=== PATIENT | male | born 1985 | race Caucasian/White ===

== ENCOUNTER 2021-06-02 18:03 | Emergency (ER) | payer SELFPAY ==
[~2021-06-02] VITALS: Ht 170.2 cm; Wt 104.3 kg
--- NOTE | 2021-06-02 18:10 | NUR ---
Patient to ER bed 7 to gown for evaluation. Side rails up. Report given to BARON Georges.
--- NOTE | 2021-06-02 18:15 | NUR ---
Pt bib ACLS from home with c/o SOB. Reports he tested positive for covid and was seen at [facility] for regeneron. He was sent home with O2 and instructed to call 911 if his saturation dropped below 90%. Pt reports being off of oxygen and his sats dropped to 89%. With O2 via NC at 2L, saturation 96%. Tachycardia noted upon assessment. Other v/s stable.
[2021-06-02 18:20] VITALS: BP_SYST 161
--- NOTE | 2021-06-02 18:50 | NUR ---
Pt. bib ACLS from home with concern regarding O2 sat.; was 89% when he called 911 on room air, on arrival of EMS pt. sat. was 96%, currently on 2L/min. via NC with sat of 94%. Pt. did have + Covid test on 05/25 and has been getting tx. with [facility]. Pt. has concerns he is not getting the right tx. S.L. in place from [facility].
--- NOTE | 2021-06-02 18:50 | NUR ---
crackels noted on lung auscultation.
--- NOTE | 2021-06-02 18:58 | NUR ---
ER at bedside examining patient.
--- NOTE | 2021-06-02 19:08 | NUR ---
Report to Issac
--- NOTE | 2021-06-02 19:09 | NUR ---
Received endorsement [facility] day shift, AAOX4, breathing spontaneously WITH O2 at 2L/min via NC, [id number]%, mild labored breathing, tachypnea, tachycardia noted, been tested Covid positive positive in [place].
--- NOTE | 2021-06-02 19:09 | NUR ---
Note ranijustus in EDM - 06/02/21 at 1919 by ROMÁN Received from day shift, AAOX3, breathing spontaneously at room air, notin distress noted, with ongoing IV fluid 0.9% NS 1L at left forearm , G20 IV cannula noted, patent. Vital signs stable
--- NOTE | 2021-06-02 19:15 | NUR ---
RT at bedside for ABG
[2021-06-02] MEDS ORDERED: BENZ100C92 PO (20:31)
[2021-06-02] MEDS ORDERED: DOXY-160 PO (20:31)
[2021-06-02] MEDS ORDERED: PRED20TA PO (20:31)
[2021-06-02] MEDS ORDERED: COLC0.6T67 PO ×2 (20:31)
[2021-06-02] MEDS ORDERED: ALBU8.5H8 INH (20:31)
[2021-06-02] MEDS ORDERED: ZINC50TA69 PO (20:31)
--- NOTE | 2021-06-02 20:31 | NUR ---
Medication reconciliation completed with information provided by the patient. Any prior medication reconciliation on file was reviewed and corrected.
[2021-06-02] MEDS ORDERED: LevALBUTEROL HCL 1.25 MG/0.5 ML *CONC.* VIAL.NEB (XOPENEX CONC.) INH ONE (20:45)
--- NOTE | 2021-06-02 21:31 | NUR ---
Teo junior arranged for transfer to [place] as per insurance request.
--- NOTE | 2021-06-02 23:21 | NUR ---
Chest Xray done at bedside
--- NOTE | 2021-06-02 23:30 | NUR ---
Patient to be transferred to [facility]. Is being transferred due to higher level of care. Receiving facility has accepting physician and available space. ER physician has signed transfer form. Patient or responsible green party has agreed to transfer and signed form. Patient belongings inventoried and will be sent with patient. Copy of nursing notes, lab reports, EKG, Physicians Orders and X-rays to be sent with patient. Report called to BARON Blair at receiving facility. Receiving physician is Dr. Del Cid. [facility] ambulance service has been called for transfer. ETA is 12MIDNIGHT.
--- NOTE | 2021-06-02 23:37 | NUR ---
Seen and examined by Dr. Maria, ordered to give IV fluid and carried out
[2021-06-02] MEDS ORDERED: NACL 0.9% 1,000 ML IV ONE (23:45)
[2021-06-03 00:02] VITALS: BP_SYST 157
--- NOTE | 2021-06-03 00:02 | NUR ---
[facility] personnel came, summary report given
--- NOTE | 2021-06-03 00:12 | NUR ---
Transferred to [facility] via ambulance accompanied by [facility] transport personnel in stable condition.
== END 2021-06-03 00:02 | disposition short-term general hospital (02) ==
LOC: SED 18:03
DX: U07.1 COVID-19 (principal); R06.02 Shortness of breath; Z79.899 Other long term (current) drug therapy
CPT/HCPCS: 36600; 71045; 82803; 96360; 99285; J7030; J7612